=== PATIENT | female | born 1975 | race Caucasian/White ===

== ENCOUNTER 2016-02-28 13:04 | Emergency (ER) | payer OTHER ==
[~2016-02-28] VITALS: Ht 149.9 cm; Wt 57.6 kg
[~2016-02-28 13:04] MED LIST: BACTRIM DS TAB1 EACH PO; CLARITIN10 MG; CLEOCIN HCL300 MG PO; DOXYCYCLINE 10100 MG PO; IBUPROFEN 600600 M1 PO; KEFLEX500 MG PO; MACROBID 100 M100 M1 PO; NOHOMEMEDICATIONS; NORCO 5-325 TA1 EACH PO; PREDNISONE 20 M20 MG PO; TRAMADOL 50 MG50 MG PO; VENTOLIN HFA 1818 GM INH; ZANTAC 150MG T150 MG PO
[2016-02-28] MEDS ORDERED: ZPAK PO (14:54)
[2016-02-28] MEDS ORDERED: VENTOLIN HFA 1818 GM INH (14:54)
[2016-02-28] MEDS ORDERED: IBUPROFEN 600600 M1 PO (14:54)
[2016-02-28] MEDS ORDERED: PREDNISONE 20 M20 MG PO (14:54)
[2016-02-28 15:07] VITALS: BP 134/85
== END 2016-02-28 15:08 | disposition home or self-care (01) ==
LOC: ER 13:04
DX: J16.8 Pneumonia due to other specified infectious organisms (principal); J44.9 Chronic obstructive pulmonary disease, unspecified; F17.210 Nicotine dependence, cigarettes, uncomplicated; F10.99 Alcohol use, unspecified with unspecified alcohol-induced disorder; G56.01 Carpal tunnel syndrome, right upper limb

== ENCOUNTER 2017-03-03 10:12 | Emergency (ER) | payer OTHER ==
[~2017-03-03] VITALS: Ht 149.9 cm; Wt 59.0 kg
[~2017-03-03 10:12] MED LIST changes: +ZPAK PO
[2017-03-03 10:53] LABS: URINE BILIRUBIN NEGATIVE (Negative); URINE BLOOD 2+ (Negative); URINE CLARITY SL CLOUDY; URINE COLOR YELLOW; URINE GLUCOSE-RANDOM* NEGATIVE (Negative); URINE KETONES NEGATIVE (Negative); URINE LEUKOCYTES 3+ (Negative); URINE NITRITE POSITIVE (Negative); URINE PROTEIN (DIPSTICK) TRACE (Negative); URINE UROBILINOGEN 0.2 E.U./dl (0.2-1.0)
[2017-03-03 11:24] LABS: HEMOGLOBIN 12.7 gm/dL (12.0-15.0); MCHC 33.8 g/dL (28.0-37.0); PLATELET COUNT 175 thou/uL (150-400)
[2017-03-03 11:25] LABS: ABSOLUTE NEUTROPHILS 11.4 thou/uL (1.4-8.2); BASOPHILS 0.6 % (0.0-2.0); EOSINOPHILS 0.9 % (0.0-3.0); HEMATOCRIT 37.7 % (37.0-47.0); LYMPHOCYTES 9.7 % (24.0-44.0); MCH 29.7 pg (26.0-34.0); MONOCYTES 10.4 % (1.0-8.0); POLYS 78.4 % (36.0-66.0); RBC 4.28 mil/uL (4.20-5.00); RDW 13.4 % (10.5-14.5); WBC 14.6 thou/uL (4.0-11.0)
[2017-03-03 11:26] LABS: CASTS None Seen /LPF (None Seen); SQUAMOUS 0-3 Few /LPF (0-3)
[2017-03-03 11:27] LABS: BACTERIA >30 Many /HPF (None Seen); CRYSTALS None Seen /LPF (None Seen); URINE RBC 0-2 Rare /HPF (0-2); URINE WBC >25 Many /HPF (0-5); WBC CLUMPS Moderate (None Seen)
[2017-03-03 11:40] LABS: CALCIUM 8.8 mg/dL (8.5-10.1); CREATININE 0.7 mg/dL (0.6-1.0); POTASSIUM 3.7 mmol/L (3.5-5.1)
[2017-03-03] MEDS ORDERED: BACTRIM DS TAB1 EACH PO (11:44)
[2017-03-03] MEDS ORDERED: DOXYCYCLINE 10100 MG PO (11:44)
[2017-03-03] MEDS ORDERED: HYDROCODONE-AP1 EAC6 PO (11:47)
== END 2017-03-03 12:00 | disposition home or self-care (01) ==
LOC: ER 10:12
PROVIDERS: Physician Assistant
DX: N12 Tubulo-interstitial nephritis, not specified as acute or chronic (principal); J44.9 Chronic obstructive pulmonary disease, unspecified; J18.9 Pneumonia, unspecified organism; F17.210 Nicotine dependence, cigarettes, uncomplicated

== ENCOUNTER 2017-04-23 17:13 | Emergency (ER) | payer OTHER ==
[~2017-04-23] VITALS: Ht 152.4 cm; Wt 58.1 kg
[~2017-04-23 17:13] MED LIST changes: +HYDROCODONE-AP1 EAC6 PO
[2017-04-23 17:35] LABS: URINE BILIRUBIN NEGATIVE (Negative); URINE BLOOD 2+ (Negative); URINE COLOR YELLOW; URINE GLUCOSE-RANDOM* NEGATIVE (Negative); URINE KETONES NEGATIVE (Negative); URINE LEUKOCYTES 2+ (Negative); URINE NITRITE POSITIVE (Negative); URINE PROTEIN (DIPSTICK) TRACE (Negative); URINE SPECIFIC GRAVITY <= 1.005 (1.005-1.035); URINE UROBILINOGEN 0.2 E.U./dl (0.2-1.0)
[2017-04-23 17:39] LABS: URINE CLARITY SL HAZY
[2017-04-23 17:43] LABS: SQUAMOUS 0-3 Few /LPF (0-3)
[2017-04-23 17:44] LABS: CASTS None Seen /LPF (None Seen); CRYSTALS None Seen /LPF (None Seen); URINE RBC 3-10 Few /HPF (0-2)
[2017-04-23 18:03] LABS: ABSOLUTE NEUTROPHILS 8.8 thou/uL (1.4-8.2); BASOPHILS 0.6 % (0.0-2.0); EOSINOPHILS 0.6 % (0.0-3.0); HEMATOCRIT 33.4 % (37.0-47.0); HEMOGLOBIN 11.4 gm/dL (12.0-15.0); LYMPHOCYTES 13.9 % (24.0-44.0); MCH 29.4 pg (26.0-34.0); MCHC 34.2 g/dL (28.0-37.0); MCV 85.9 fL (80.0-100.0); MONOCYTES 11.1 % (1.0-8.0); PLATELET COUNT 186 thou/uL (150-400); POLYS 73.8 % (36.0-66.0); RBC 3.89 mil/uL (4.20-5.00); RDW 14.2 % (10.5-14.5)
[2017-04-23 18:12] LABS: CALCIUM 8.6 mg/dL (8.5-10.1); CREATININE 0.9 mg/dL (0.6-1.0); POTASSIUM 3.3 mmol/L (3.5-5.1)
[2017-04-23 18:18] LABS: ALBUMIN 2.8 g/dL (3.4-5.0); TOTAL BILIRUBIN 0.4 mg/dL (<0.1-1.0); TOTAL PROTEIN 7.8 g/dL (6.4-8.2)
[2017-04-23 18:22] LABS: LARGE PLATELETS RARE
[2017-04-23] MEDS ORDERED: CIPROFLOXACIN500 M1 PO (18:43)
== END 2017-04-23 19:35 | disposition home or self-care (01) ==
LOC: ER 17:13
PROVIDERS: Emergency Medicine; Nurse Practitioner Family
DX: N39.0 Urinary tract infection, site not specified (principal); J44.9 Chronic obstructive pulmonary disease, unspecified; F17.210 Nicotine dependence, cigarettes, uncomplicated

== ENCOUNTER 2017-05-30 19:59 | Emergency (ER) | payer OTHER ==
[~2017-05-30] VITALS: Ht 152.4 cm; Wt 58.1 kg
--- NOTE | ~2017-05-30 | EKG ---
[address] [place] [address] ELECTROCARDIOGRAM REPORT Name: DIOGO SHARP Room #: [facility]#: [id number] Admission: 05/30/17 Attend Phys: Discharge: 05/30/17 Date of : 77 Report #: [id number] THIS REPORT FOR: //name// [facility] ED Test Date: 2017-05-30 Test Time: 20:06:38 Pat Name: DIOGO SHARP Department: Room: Gender: F Legal Contracts Specialist: TIMOTHY : 1975 Requested By: Lucero Miller Order Number: [id number] MD: Porter Rucker Measurements Intervals [place] Rate: 92 P: 68 MS: 113 QRS: 56 QRSD: 86 T: -18 QT: 354 QTc: 438 Interpretive Statements Sinus rhythm Poor R wave progression Borderline repolarization abnormality No previous ECG available for comparison Electronically Signed On 05-31-2017 17:42:38 CDT by Porter Rucker [email or web address] <ELECTRONICALLY SIGNED> By: Porter Rucker MD, [facility] 05/31/17 1742 05 05 Porter Rucker MD, FACC /EPI
[~2017-05-30 19:59] MED LIST changes: +CIPROFLOXACIN500 M1 PO
[2017-05-30 20:51] LABS: HEMATOCRIT 37.4 % (37.0-47.0); HEMOGLOBIN 12.9 gm/dL (12.0-15.0); MCH 29.4 pg (26.0-34.0); MCHC 34.5 g/dL (28.0-37.0); MCV 85.2 fL (80.0-100.0); PLATELET COUNT 118 thou/uL (150-400); RBC 4.39 mil/uL (4.20-5.00); RDW 15.7 % (10.5-14.5)
[2017-05-30 21:03] LABS: ANION GAP 10 mmol/L (7-16); BUN 10 mg/dL (7-18); CALCIUM 9.2 mg/dL (8.5-10.1); CHLORIDE 101 mmol/L (98-107); CO2 21 mmol/L (21-32); CREATININE 0.9 mg/dL (0.6-1.0); GLUCOSE 90 mg/dL (74-106); POTASSIUM 3.7 mmol/L (3.5-5.1); SODIUM 132 mmol/L (136-145)
[2017-05-30 21:08] LABS: INR 1.1; PROTIME 11.3 Seconds (9.3-11.4)
[2017-05-30 21:20] LABS: ALBUMIN 3.2 g/dL (3.4-5.0); SGOT 24 U/L (15-37); SGPT 33 U/L (30-65); TOTAL BILIRUBIN 0.4 mg/dL (<0.1-1.0); TOTAL PROTEIN 8.4 g/dL (6.4-8.2); TROPONIN-I < 0.04 ng/mL (<0.06)
[2017-05-30 21:23] LABS: ABSOLUTE NEUTROPHILS 3.3 thou/uL (1.4-8.2); ANISOCYTOSIS 1+
[2017-05-30] MEDS ORDERED: VENTOLIN HFA 1818 GM INH (22:49)
[2017-05-30] MEDS ORDERED: OSELB75 PO (22:49)
[2017-05-30] MEDS ORDERED: PREDNISONE 20 M20 MG PO (22:49)
[2017-05-30] MEDS ORDERED: DOXYCYCLINE 10100 MG PO (22:49)
[2017-05-30 23:26] VITALS: BP 111/65
== END 2017-05-30 22:58 | disposition home or self-care (01) ==
LOC: ER 19:59
PROVIDERS: Physician Assistant
DX: J11.1 Influenza due to unidentified influenza virus with other respiratory manifestations (principal); J44.1 Chronic obstructive pulmonary disease with (acute) exacerbation; F17.210 Nicotine dependence, cigarettes, uncomplicated

== ENCOUNTER 2019-08-22 11:41 | Emergency (ER) | payer OTHER ==
[~2019-08-22] VITALS: Ht 152.4 cm; Wt 61.2 kg
[~2019-08-22 11:41] MED LIST changes: +OSELB75 PO
[2019-08-22 12:28] LABS: URINE BILIRUBIN NEGATIVE (Negative); URINE BLOOD TRACE (Negative); URINE CLARITY SL CLOUDY; URINE COLOR YELLOW; URINE GLUCOSE-RANDOM* NEGATIVE (Negative); URINE KETONES NEGATIVE (Negative); URINE PROTEIN (DIPSTICK) NEGATIVE (Negative); URINE UROBILINOGEN 0.2 E.U./dl (0.2-1.0)
[2019-08-22 12:30] LABS: URINE LEUKOCYTES-REFLEX 1+ (Negative); URINE NITRITE-REFLEX POSITIVE (Negative)
[2019-08-22 12:34] LABS: ABSOLUTE NEUTROPHILS 5.7 thou/uL (1.4-8.2); BASOPHILS 0.7 % (0.0-2.0); EOSINOPHILS 1.9 % (0.0-3.0); HEMATOCRIT 37.5 % (37.0-47.0); HEMOGLOBIN 12.9 gm/dL (12.0-15.0); LYMPHOCYTES 18.9 % (24.0-44.0); MCH 29.4 pg (26.0-34.0); MCHC 34.4 g/dL (28.0-37.0); MCV 85.6 fL (80.0-100.0); MONOCYTES 6.4 % (1.0-8.0); POLYS 72.1 % (36.0-66.0); RBC 4.39 mil/uL (4.20-5.00); RDW 15.1 % (10.5-14.5); WBC 7.9 thou/uL (4.0-11.0)
[2019-08-22 12:41] LABS: SQUAMOUS 4-10 Moderate /LPF (0-3)
[2019-08-22 12:42] LABS: BACTERIA-REFLEX >30 Many /HPF (None Seen); CASTS None Seen /LPF (None Seen); CRYSTALS None Seen /LPF (None Seen); URINE RBC 0-2 Rare /HPF (0-2); URINE WBC-REFLEX >25 Many /HPF (0-5)
[2019-08-22 12:43] LABS: ANION GAP 10 mmol/L (7-16); BUN 9 mg/dL (7-18); CALCIUM 9.3 mg/dL (8.5-10.1); CHLORIDE 104 mmol/L (98-107); CO2 23 mmol/L (21-32); GLUCOSE 108 mg/dL (74-106); SODIUM 137 mmol/L (136-145)
[2019-08-22 12:55] LABS: SGOT 16 U/L (15-37); SGPT 18 U/L (30-65); TOTAL BILIRUBIN 0.3 mg/dL (0.2-1.0); TOTAL PROTEIN 8.6 g/dL (6.4-8.2); TROPONIN-I <0.06 ng/mL (<0.06)
[2019-08-22 14:08] LABS: PLATELET COUNT 174 thou/uL (150-400)
[2019-08-22] MEDS ORDERED: ZOFRAN ODT4 MG PO (14:44)
[2019-08-22] MEDS ORDERED: KEFLEX500 M1 PO (14:44)
[2019-08-22] MEDS ORDERED: MECLIZINE HCL25 M1 PO (14:44)
[2019-08-22 15:23] VITALS: BP 102/61
--- NOTE | 2019-08-22 16:06 | EKG ---
[facility] [place] [address] ELECTROCARDIOGRAM REPORT Name: DIOGO SHARP Room #: [facility]P [facility]#: [id number] Admission: 08/22/19 Attend Phys: Discharge: 08/22/19 Date of : 77 Report #: [id number] THIS REPORT FOR: cc: NIKOS - No family physician/PCP NIKOS - No family physician/PCP Porter Rucker MD [facility] THIS REPORT FOR: //name// [facility] ED Test Date: 2019-08-22 Test Time: 12:31:42 Pat Name: DIOGO SHARP Department: Room: Gender: [employer] 1975 Requested By: Jade Mariscal Order Number: [id number] MD: Porter Rucker Measurements Intervals [place] Rate: 72 P: 52 PA: 122 QRS: 48 QRSD: 91 T: 42 QT: 418 QTc: 458 Interpretive Statements Sinus rhythm Normal tracing Compared to ECG 05/30/2017 20:06:38 Poor R-wave progression no longer present Electronically Signed On 08-22-2019 16:05:32 CDT by Porter Rucker [email or web address] <ELECTRONICALLY SIGNED> By: Poretr Rucker MD, FACC 08/22/19 1605 1231 1231 Porter Rucker MD, [facility] /EPI
== END 2019-08-22 15:25 | disposition home or self-care (01) ==
LOC: ER 11:41
PROVIDERS: Nurse Practitioner Family
DX: N39.0 Urinary tract infection, site not specified (principal); R11.2 Nausea with vomiting, unspecified; R19.7 Diarrhea, unspecified; M54.2 Cervicalgia; R42 Dizziness and giddiness; J44.9 Chronic obstructive pulmonary disease, unspecified; F17.210 Nicotine dependence, cigarettes, uncomplicated; Z98.890 Other specified postprocedural states; Z79.899 Other long term (current) drug therapy; Z79.2 Long term (current) use of antibiotics